=== PATIENT | female | born 2000 | race Hispanic/Latino ===

== ENCOUNTER 2020-12-30 12:19 | Emergency (ER) | payer OTHER, SELFPAY ==
[2020-12-30] VITALS (14 sets, daily range): BP systolic 99–129; BP diastolic 62–77; PULSE 48–101; RESP 14–23; TEMP 36.1; O2SAT 98–100
--- NOTE | ~2020-12-30 | XR_ITS ---
XR chest 2V 12/30/2020 13:09 Indication: Chest tightness and shortness of breath Procedure: PA and lateral views of the chest Comparison: No prior studies for comparison. Findings: Heart size normal. No focal air space disease, pulmonary edema, pleural effusion or suspect ed pneumothorax. No acute osseous abnormality. Impression: 1: No acute cardiopulmonary disease. Reviewed, dictated and finalized at location B. Impression: 1: No acute cardiopulmonary disease.
--- NOTE | 2020-12-30 12:21 | ECG_ITS ---
Measurements Intervals [place] Rate: 84 P: 56 MI: 160 QRS: 65 QRSD: 83 T: 36 QT: 357 QTc: 423 Interpretive Statements SINUS RHYTHM BASELINE ARTIFACT- I, II, III, AVR, AVL, AVF, V3-V5 NORMAL ECG Electronically Signed On 12-30-2020 12:38:46 CDT by Dash Coleman D.O.
[2020-12-30 12:45] LABS: Basophils Absolute Auto 0.1 K/mm3 (0.0-0.1); Basophils Percent Auto 0.9 % (0.2-1.2); Eosinophils Absolute Auto 0.5 K/mm3 (0-0.3); Eosinophils Percent Auto 6.9 % (0-4.4); Hemoglobin 12.4 g/dL (12.0-15.0); Immature Granulocyte Absolute 0.01 K/mm3 (0.00-0.031); Immature Granulocyte Percent A 0.1 % (0-0.5); Lymphocytes Absolute Auto 2.56 K/mm3 (0.9-3.2); Lymphocytes Percent Auto 33.2 % (18.3-44.2); Mean Corpuscular HGB Conc 31.8 g/dl (32-36); Mean Corpuscular Hemoglobin 25.2 pg (26-34); Mean Corpuscular Volume 79.1 fl (80-100); Monocytes Absolute Auto 0.6 K/mm3 (0.1-0.6); Monocytes Percent Auto 7.5 % (2.6-8.5); Neutrophils Percent Auto 51.4 % (45.5-73.1); Platelet Count Result 285 k/mm3 (150-375); Red Blood Count 4.93 M/mm3 (4.2-5.4); Red Cell Distribution Width 13.4 % (11.5-14.5); White Blood Count 7.7 K/mm3 (4.5-10.0)
[2020-12-30 13:01] LABS: Anion Gap 8 mmol/L (8-16); Blood Urea Nitrogen 8 mg/dL (7-17); Calcium 9.3 mg/dL (8.4-10.2); Carbon Dioxide 26 mmol/L (22-30); Chloride 105 mmol/L (98-107); Estimated CRCL calculation 108 ml/min; Estimated Glomerular Filt Rate > 60; Glucose 82 mg/dL (65-105); Potassium 3.9 mmol/L (3.4-5.0); Sodium 139 mmol/L (137-145)
[2020-12-30 13:11] LABS: Troponin I < 0.012 ng/mL (0.000-0.034)
--- NOTE | 2020-12-30 15:51 | ED.SOB ---
HPI - SOB/Dyspnea General Chief Complaint: Shortness of Breath/Dyspnea Stated Complaint: chest tightness, dyspnea Time Seen by Provider: 12/30/20 14:46 Source: patient Mode of arrival: ambulatory Limitations: no limitations History of Present Illness HPI Narrative: This is a 20-year-old female that presents to the emergency department for shortness of breath and wheezing since yesterday. Reports she takes an inhaler daily for her asthma, but does not have an albuterol inhaler as needed. Reports she started to feel chest tightness and wheezing yesterday. Does report a mild nonproductive cough and rhinorrhea. Denies fever. Related Data Home Medications Medication Instructions Recorded Confirmed cetirizine [Zyrtec] 10 mg PO DAILY 12/30/20 montelukast mg 12/30/20 umeclidinium [Incruse Ellipta] INHALATION 12/30/20 Allergies Allergy/AdvReac Type Severity Reaction Status Date / Time No Known Allergies Allergy Mild Verified 12/30/20 14:53 Review of Systems Review of Systems: Narrative: CONSTITUTIONAL: Denies fever ENT: Reports rhinorrhea. Denies congestion, sore throat CARDIOVASCULAR: Reports chest tightness RESPIRATORY: Reports cough and dyspnea. All systems reviewed & are unremarkable except as noted in HPI and below PMFSH Past Medical History Medical History (Updated 12/30/20 @ 17:05 by Padmini Palacios PA-C) History of asthma History of seasonal allergies Social History Social History (Updated 12/30/20 @ 16:00 by Padmini Palacios PA-C) Smoking status: Never smoker Exam Narrative: Exam Narrative: GENERAL: Well-appearing, well-nourished, and in no acute distress. HEAD: Normocephalic, atraumatic. EYES: EOMI. ENT: Nares clear, no rhinorrhea or epistaxis. Mucous membranes moist. Oropharynx without tonsillar hypertrophy exudate or other lesions. Bilateral TMs pearly mosher non-bulging NECK: Supple. No adenopathy or masses. CHEST: No respiratory distress. Mild wheezing throughout. No rales or rhonchi HEART: Regular rate and rhythm. No murmur heard. Normal peripheral pulses. EXTREMITIES: Normal range of motion. No edema. SKIN: Warm, dry, no rash. NEURO: No focal deficits. Alert and oriented x3. PSYCH: Normal mood and affect Course Vital Signs Vital signs: Vital Signs Temperature 97.0 F L 12/30/20 12:21 Pulse Rate 88 12/30/20 12:21 Respiratory Rate 16 12/30/20 12:21 Blood Pressure 127/77 12/30/20 12:21 Pulse Oximetry 99 12/30/20 12:21 Temperature 97.0 F L 12/30/20 12:21 Pulse Rate 48 L 12/30/20 16:05 Respiratory Rate 14 12/30/20 16:05 Blood Pressure 99/69 L 12/30/20 14:55 Pulse Oximetry 98 12/30/20 15:53 MDM - SOB/Dyspnea MDM Narrative Medical decision making narrative: Patient presents to the emergency department for shortness of breath and wheezing since yesterday. She is afebrile and nontoxic-appearing. Her vitals are stable. Oxygen saturation is normal on room air. CBC and metabolic panel without concerning findings. EKG is without concerning changes and baseline troponin is negative. Chest x-ray is clear. Patient had mild wheezing on arrival, this was relieved with nebulizer treatment. Patient reports relief of her symptoms. She is stable and felt appropriate for further outpatient evaluation. Will be given prescription for albuterol inhaler as she does not currently have one. She was given warnings to return to the ER Lab Data Attestation: I reviewed the patient's lab results. Result diagrams: 12/30/20 12:35 12/30/20 12:35 Labs: Lab Results 12/30/20 12/30/20 Range/Units 12:35 12:35 WBC 7.7 (4.5-10.0) K/mm3 RBC 4.93 (4.2-5.4) M/mm3 Hgb 12.4 (12.0-15.0) g/dL Hct 39.0 (37.0-47.0) % MCV 79.1 L (80-100) fl MCH 25.2 L (26-34) pg MCHC 31.8 L (32-36) g/dl RDW 13.4 (11.5-14.5) % Plt Count 285 (150-375) k/mm3 MPV 11.0 H (7.4-10.4) fl Immature Gran % (Auto) 0.1 (0-0.5) % Neut % (
[2020-12-30] MEDS: IPRATROPIUM BR 0.02% INH SOLN 0.5 MG/2.5 ML VIAL INHALATION (15:55)
[2020-12-30] MEDS: ALBUTEROL SULFATE NEB 2.5 MG/0.5 ML INH 5 MG INHALATION (15:55)
== END 2020-12-30 17:15 | disposition home or self-care (01) ==
PROVIDERS: Emergency Medicine; Emergency Provider Emergency Medicine; PCP Registered Nurse
DX: J45.31 Mild persistent asthma with (acute) exacerbation (principal)
CPT/HCPCS: 36415; 71046; 80048; 84484; 85025; 93005; 94640; 99284

== ENCOUNTER 2021-05-12 01:15 | Emergency (ER) | payer OTHER, SELFPAY ==
--- NOTE | ~2021-05-12 | XR_ITS ---
EXAMINATION: XR chest 2V DATE: 05/12/2021 02:00 INDICATION: Shortness of breath. TECHNIQUE: Frontal and lateral views of the chest were obtained. COMPARISON: Chest 2 views 12/30/2020 FINDINGS: There are mild airspace opacities in right lower lung zone. No pleural effusion or pneumoth orax. The heart size is normal. IMPRESSION: 1. Mild airspace opacities in right lower lung zone, consistent with atelectasis versus pneumonia. Reviewed, dictated and finalized at location A. IMPRESSION: 1. Mild airspace opacities in right lower lung zone, consistent with atelectasi s versus pneumonia.
[2021-05-12 01:18] VITALS: BP 127/89; PULSE 109; RESP 25; TEMP 36.4; O2SAT 99
[2021-05-12 01:35] VITALS: O2SAT 98
[2021-05-12] MEDS: ALBUTEROL SULFATE NEB 2.5 MG/0.5 ML INH 5 MG INHALATION (01:39)
[2021-05-12] MEDS: IPRATROPIUM BR 0.02% INH SOLN 0.5 MG/2.5 ML VIAL INHALATION (01:39)
[2021-05-12 01:42] VITALS: PULSE 103; RESP 20
[2021-05-12] MEDS: methylPREDNISolone SOD SUCC 125 MG VIAL IV PUSH (01:45)
--- NOTE | 2021-05-12 01:45 | ED.SOB ---
HPI - SOB/Dyspnea General Chief Complaint: Shortness of Breath/Dyspnea Stated Complaint: sob Time Seen by Provider: 05/12/21 01:32 Source: patient Mode of arrival: ambulatory Limitations: no limitations History of Present Illness HPI Narrative: Patient is a 20-year-old female complaining of an asthma attack started tonight. Patient states that she was coughing and started wheezing, try to use her albuterol inhaler but only provided slight relief. Patient admits to nasal congestion for the past few days. Patient states that last time she had an attack was approximately 3 to 4 months ago. Patient denies any chest pain, Philip pain, nausea, vomiting, diaphoresis, fever or chills. Related Data Home Medications Medication Instructions Recorded Confirmed cetirizine [Zyrtec] 10 mg PO DAILY 12/30/20 montelukast mg 12/30/20 umeclidinium [Incruse Ellipta] INHALATION 12/30/20 Allergies Allergy/AdvReac Type Severity Reaction Status Date / Time No Known Allergies Allergy Mild Verified 12/30/20 14:53 Review of Systems Review of Systems: All systems reviewed & are unremarkable except as noted in HPI and below Constitutional: Constitutional: Denies body ache(s), Denies chills, Denies excessive sweating, Denies fatigue, Denies fever(s), Denies headache(s), Denies lethargy, Denies malaise, Denies weakness and Denies weight loss Eyes: Eyes: Denies blurry vision, Denies change in vision and Denies loss of vision ENT: Denies dizziness, Denies ear discharge, Denies headache(s), Denies lip swelling, Denies epistaxis, Denies nasal congestion, Denies neck pain, Denies throat swelling and Denies tongue swelling Cardiovascular: Cardiovascular: Denies chest pain, Denies chest pain at rest, Denies chest pain with activity, Denies diaphoresis, Denies rapid heart rate, Denies edema, Denies irregular heart rhythm, Denies lightheadedness, Denies palpitations and Denies dyspnea on exertion Respiratory: Respiratory: Denies chest congestion, Denies hemoptysis and Denies dyspnea on exertion Gastrointestinal: Gastrointestinal: Denies abdominal pain, Denies melena, Denies hematochezia, Denies diarrhea, Denies nausea, Denies vomiting and Denies hematemesis Musculoskeletal: Musculoskeletal: Denies abnormal gait, Denies deformity, Denies joint swelling, Denies limited range of motion, Denies neck pain and Denies numbness Neurologic: Denies Abnormal speech present, Denies abnormal gait, Denies confusion, Denies dizziness, Denies headache(s), Denies focal weakness, Denies loss of vision, Denies numbness, Denies Other visual disturbances, Denies Sensory deficit (Neuro) and Denies weakness Psychiatric: Psychiatric: Denies confusion, Denies depression, Denies auditory hallucinations, Denies homicidal ideation and Denies suicidal ideation Endocrine: Endocrine: Denies cold intolerance, Denies excessive sweating, Denies fatigue, Denies heat intolerance and Denies palpitations Hematologic/Lymphatic: Hematologic/Lymphatic: Denies easy bleeding and Denies easy bruising Allergic/Immunologic: Allergic/Immunologic: Denies lip swelling, Denies throat swelling and Denies tongue swelling [facility] Past Medical History Medical History (Updated 05/12/21 @ 02:15 by Abdirahman Delarosa MD) History of asthma History of seasonal allergies Social History Social History (Updated 12/30/20 @ 16:00 by Padmini Palacios PA-C) Smoking status: Never smoker Comments Past medical history: Asthma Family history: Unknown Social history: Non-smoker no EtOH or drug use Exam Const: General: cooperative, healthy appearing, comfortable, no acute distress, well developed, alert and awake; No confusion Orientation/consciousness: oriented to person, oriented to place, oriented to time, patient oriented x3 and No confusion Limitations: no limitations HENMT: Head: normal to inspection, normocephalic and atraumatic Ears: hearing grossly normal bilaterally, TM normal on the right and TM no
[2021-05-12 01:48] VITALS: PULSE 100; RESP 18
[2021-05-12 03:07] VITALS: BP 117/70; PULSE 104; RESP 14; O2SAT 100
== END 2021-05-12 03:07 | disposition home or self-care (01) ==
PROVIDERS: Emergency Provider Emergency Medicine; PCP Registered Nurse
DX: J45.901 Unspecified asthma with (acute) exacerbation (principal)
CPT/HCPCS: 71046; 81025; 94640; 96374; 99284; J2930

== ENCOUNTER 2023-09-23 23:31 | Emergency (ER) | payer SELFPAY ==
--- NOTE | ~2023-09-23 | XR_ITS ---
EXAMINATION: XR chest 2V DATE: 09/24/2023 00:07 INDICATION: Chest tightness. Shortness of breath. TECHNIQUE: Frontal and lateral views of the chest were obtained. COMPARISON: Chest 2 views 05/12/21 FINDINGS: There is no pneumonia, pleural effusion, or pneumothorax. The heart size is normal. IMPRESSION: 1. No acute cardiopulmonary disease. Reviewed, dictated and finalized at location A. [employer]
[2023-09-23 23:32] VITALS: BP 136/67; PULSE 94; RESP 18; TEMP 36.3; O2SAT 98
--- NOTE | 2023-09-23 23:39 | ECG_ITS ---
Measurements Intervals [place] Rate: 88 P: 54 DC: 139 QRS: 50 QRSD: 94 T: 42 QT: 354 QTc: 430 Interpretive Statements SINUS RHYTHM NORMAL ECG COMPARED TO ECG 12/30/2020 12:28:33 NO SIGNIFICANT CHANGES Electronically Signed On 09-24-2023 7:04:57 [employer] by Dash Coleman D.O.
[2023-09-23 23:51] VITALS: PULSE 87; RESP 16; O2SAT 99
[2023-09-23 23:53] VITALS: BP 137/86; PULSE 87; RESP 19; O2SAT 99
[2023-09-23 23:55] VITALS: O2SAT 98
[2023-09-24] VITALS (13 sets, daily range): BP systolic 106–121; BP diastolic 61–87; PULSE 7–102; RESP 15–77; O2SAT 98–100
--- NOTE | 2023-09-24 00:02 | PC.NURSE ---
Patient taken to xray at this time via stretcher.
[2023-09-24] MEDS: predniSONE 20 MG TABLET 60 MG PO (00:31)
[2023-09-24 00:36] LABS: Alanine Aminotransferase 22 U/L (6-35); Albumin Level 4.4 g/dL (3.5-5.1); Alkaline Phosphatase 114 U/L (38-126); Anion Gap 6 mmol/L (8-16); Aspartate Amino Transferase 27 U/L (14-36); Basophils Absolute Auto 0.1 K/mm3 (0.0-0.1); Basophils Percent Auto 0.6 % (0.2-1.2); Bilirubin,Total 0.3 mg/dL (0.2-1.3); Blood Urea Nitrogen 13 mg/dL (7-17); Calcium 9.5 mg/dL (8.4-10.2); Carbon Dioxide 29 mmol/L (22-30); Chloride 102 mmol/L (98-107); Eosinophils Absolute Auto 0.4 K/mm3 (0-0.3); Eosinophils Percent Auto 3.6 % (0-4.4); Estimated CRCL calculation 126 ml/min; Estimated Glomerular Filt Rate > 60; Glucose 130 mg/dL (65-110); Hemoglobin 13.7 g/dL (12.0-15.0); Immature Granulocyte Absolute 0.03 K/mm3 (0.00-0.031); Immature Granulocyte Percent A 0.3 % (0-0.5); Lymphocytes Absolute Auto 4.68 K/mm3 (0.9-3.2); Lymphocytes Percent Auto 41.6 % (18.3-44.2); Mean Corpuscular HGB Conc 32.6 g/dl (32-36); Mean Corpuscular Hemoglobin 26.4 pg (26-34); Mean Corpuscular Volume 81.1 fl (80-100); Mean Platelet Volume 10.6 fl (7.4-10.4); Monocytes Absolute Auto 0.6 K/mm3 (0.1-0.6); Monocytes Percent Auto 5.6 % (2.6-8.5); Neutrophils Absolute Auto 5.4 K/mm3 (1.3-6.7); Neutrophils Percent Auto 48.3 % (45.5-73.1); Platelet Count Result 335 k/mm3 (150-375); Potassium 3.6 mmol/L (3.4-5.0); Red Blood Count 5.18 M/mm3 (4.2-5.4); Red Cell Distribution Width 13.3 % (11.5-14.5); Sodium 137 mmol/L (137-145); White Blood Count 11.3 K/mm3 (4.5-10.0)
--- NOTE | 2023-09-24 00:36 | ED.GENADULT ---
HPI - General Adult General Chief complaint: Asthma Stated complaint: chest tightness/hx asthma Time Seen by Provider: 09/24/23 00:07 History of Present Illness HPI narrative: Patient 23-year-old female who presents emergency department with chief complaint of chest tightness and wheezing. Patient reports she has prior history of asthma and reports that earlier this evening she had some abdominal pain some diarrhea and also had an episode of vomiting. The patient states that afterwards she felt as though her chest was tight and felt as though she was wheezing. Patient denies fever reports that she has not had a bad asthma attack in several years Related Data Home Medications Medication Instructions Recorded Confirmed cetirizine 10 mg capsule (Zyrtec) 10 mg PO DAILY 12/30/20 montelukast 10 mg tablet mg 12/30/20 umeclidinium 62.5 mcg/actuation inhalation 12/30/20 blister powder for inhalation (Incruse Ellipta) Allergies Allergy/AdvReac Type Severity Reaction Status Date / Time No Known Allergies Allergy Mild Verified 12/30/20 14:53 Review of Systems Review of Systems: A 10 system review of systems was completed on the patient and is negative except for what is stated in the HPI. Nursing and ancillary documentation was reviewed. [facility] Past Medical History Medical History History of asthma History of seasonal allergies Social History Social History Smoking status: Never smoker Exam Narrative: GENERAL: Well-appearing, well-nourished, and in no acute distress. HEAD: Normocephalic, atraumatic. EYES: PERRLA and EOMI. ENT: Nares clear, no rhinorrhea or epistaxis. Mucous membranes moist. NECK: Supple. CHEST: Clear to auscultation. No respiratory distress. HEART: Regular rate and rhythm. No murmur heard. Normal peripheral pulses. ABDOMEN: Soft, nontender, nondistended, normal active bowel sounds. EXTREMITIES: Normal range of motion. No edema. SKIN: Warm, dry, no rash. NEURO: No focal deficits. Alert and oriented x3. PSYCH: Normal mood and affect. Course Vital Signs Vital signs: Vital Signs Temperature 36.3 C L 09/23/23 23:32 Pulse Rate 94 09/23/23 23:32 Respiratory Rate 18 09/23/23 23:32 Blood Pressure 136/67 09/23/23 23:32 Pulse Oximetry 98 09/23/23 23:32 Oxygen Delivery Room Air 09/23/23 23:32 Temperature 36.3 C L 09/23/23 23:32 Pulse Rate 102 H 09/24/23 01:15 Respiratory Rate 21 H 09/24/23 01:15 Blood Pressure 119/87 09/24/23 01:00 Pulse Oximetry 100 09/24/23 01:18 Oxygen Delivery Room Air 09/24/23 01:18 Medical Decision Making MDM Narrative Medical decision making narrative: Differential diagnosis includes upper respiratory infection, asthma attack, bronchospasm, viral illness COVID flu and RSV were negative CBC and CMP were within normal limits chest x-ray showed no focal infiltrate Patient received a nebulizer treatment in the emergency department 60 of prednisone and is feeling much better Vital Signs Vital Signs: Vital Signs Temperature 36.3 C L 09/23/23 23:32 Pulse Rate 94 09/23/23 23:32 Respiratory Rate 18 09/23/23 23:32 Blood Pressure 136/67 09/23/23 23:32 Pulse Oximetry 98 09/23/23 23:32 Oxygen Delivery Room Air 09/23/23 23:32 Temperature 36.3 C L 09/23/23 23:32 Pulse Rate 102 H 09/24/23 01:15 Respiratory Rate 21 H 09/24/23 01:15 Blood Pressure 119/87 09/24/23 01:00 Pulse Oximetry 100 09/24/23 01:18 Oxygen Delivery Room Air 09/24/23 01:18 Lab Data 09/24/23 00:14 09/24/23 00:14 Labs: Lab Results 09/24/23 09/24/23 Range/Units 00:14 00:36 WBC 11.3 H (4.5-10.0) K/mm3 RBC 5.18 (4.2-5.4) M/mm3 Hgb 13.7 (12.0-15.0) g/dL Hct 42.0 (37.0-47.0) % MCV 81.1 (80-100) fl MCH 26.4 (26-34) pg
[2023-09-24] MEDS: IPRATROPIUM 0.5 MG/ALBUTEROL SULFATE 2.5 MG AMPUL.NEB 3 ML INHALATION (00:48)
[2023-09-24 01:17] LABS: Influenza A QL RT-PCR Negative (Negative); Influenza B QL RT-PCR Negative (Negative); RSV RNA, RT-PCR Negative (Negative); SARS-CoV-2 RNA PCR Negative (Negative)
== END 2023-09-24 01:56 | disposition home or self-care (01) ==
PROVIDERS: Emergency Provider Emergency Medicine; PCP Registered Nurse
DX: J45.901 Unspecified asthma with (acute) exacerbation (principal); Z20.822 Contact with and (suspected) exposure to COVID-19
CPT/HCPCS: 36415; 71046; 80053; 85025; 87637; 93005; 94640; 99284; J7512